=== PATIENT | female | born 2005 | race Caucasian/White ===

== ENCOUNTER 2024-11-19 12:11 | Inpatient (IN) | payer SELFPAY ==
[2024-11-19] VITALS (7 sets, daily range): BP systolic 109–148; BP diastolic 82–90; PULSE 122–137; RESP 12–20; TEMP 36.9–38; O2SAT 96–100; BMI 21.9
--- NOTE | ~2024-11-19 | US_ITS ---
US pelvic complete Ordering provider: Amena Hu PA-C History: . LLQ pain, r/o torsion . Comparison: None. Technique: Transabdominal endovaginal ultrasound of the pelvis (Doppler ultrasound interrogation tech niques used as needed for this exam.) FINDINGS: CERVIX: Normal. UTERUS: Measures 5.8x 4.6x 3.3 cm in length which is within normal limits and is anteverted. No myom etrial masses. ENDOMETRIUM: Normal in thickness measuring 8 mm. (Note: the premenopausal endometrium may measure up to 16 mm when in the secretory phase.) No endometrial masses, cysts or fluid. CUL DE SAC: Minimal free fluid. RIGHT OVARY: Normal in size measuring 2.8x 2.7x 2.4 cm. Normal echotexture. Doppler vascular flow pre sent. Polycystic ovaries. LEFT OVARY: Normal in size measuring 2.3x 2.5x 2.4 cm Normal echotexture. Doppler vascular flow prese nt. Polycystic pulmonary ADNEXA: Normal. No mass. IMPRESSION: Polycystic ovaries with minimal free fluid. No definite torsion seen. Clinical correlation advised. O therwise, normal pelvic ultrasound. Reviewed, dictated and finalized at location A. IMPRESSION: Polycystic ovaries with minimal free fluid. No definite torsion seen. Clinical correlation advised. Otherwise, normal pelvic ultrasound.
--- NOTE | ~2024-11-19 | XR_ITS ---
CHEST RADIOGRAPH CLINICAL HISTORY: sepsis . COMPARISON: None TECHNIQUE: Single portable view of the chest. FINDINGS The cardiomediastinal silhouette is unremarkable. The lungs are clear. IMPRESSION: No focal infiltrate or effusion. Reviewed, dictated and finalized at location A.
--- NOTE | ~2024-11-19 | CT_ITS ---
CLINICAL INDICATION: Left lower quadrant pain COMPARISON: . TECHNIQUE: Multiple contiguous axial images of the abdomen and pelvis were performed following the ad ministration of with 100 mL Omnipaque-350 intravenous contrast The dose-length product (DLP) was 207.37 mGy-cm. Automated exposure control and iterative reconstruction technique were employed. FINDINGS/OBSERVATIONS: Visualized lower thorax: The bilateral lung bases are clear. The heart is of normal size, without pericardial effusion. Liver: The liver demonstrates homogeneous enhancement and is not enlarged. Gallbladder and biliary system: The gallbladder is only minimally distended, and otherwise unremarkable. Pancreas: The pancreas enhances homogeneously without ductal dilatation. Spleen: The spleen enhances homogeneously and is not enlarged. Kidneys: The bilateral kidneys demonstrate a striated enhancement pattern for which pyelonephritis is suspecte d. No hydronephrosis or renal calculi. Adrenal glands: Unremarkable. Gastrointestinal tract: Fecal stasis within the colon. Appendix: The air-filled appendix is of normal caliber (axial series, images 89 through 112) Vasculature: Unremarkable. Lymph nodes: No pathologically enlarged or morphologically suspicious lymph nodes within the retroperitoneum or at the root of the mesentery. Pelvic structures: The bladder is distended, with thickened [place] and surrounding inflammatory change. The uterus is anteverted and anteflexed. Free fluid within the pelvis, consistent with earlier pelvic ultrasound. The bladder on pelvic ultrasound that demonstrated mural edema, consistent with patient's presentatio n. Body wall and musculoskeletal: No significant degenerative disease within the lower thoracic or lumbosacral spine. IMPRESSION: Findings suggestive of pyelonephritis, with significant inflammatory change surrounding the bladder Reviewed, dictated and finalized at location A. IMPRESSION: Findings suggestive of pyelonephritis, with significant inflammatory change rico rounding the bladder
--- NOTE | 2024-11-19 15:04 | ED_ITS ---
HPI - Female Genitourinary General Chief complaint: Urogenital-Female Stated complaint: ovarian L pain, has not started period yet Time Seen by Provider: 11/19/24 16:25 Focused HPI: 19-year-old female history of type 1 diabetes presents to the emergency department for left lower quadrant abdominal pain that started today, chills and body aches that started about 6 days ago. Patient states she was recently treated for pyelonephritis 3 weeks ago and was also in DKA and hospitalized at [facility]. She states she completed the entire course of antibiotics and was feeling better until her symptoms started again a few days ago. She went to her computer animator's office today and was sent to the ED due to concerns for possible ovarian torsion given her left lower quadrant abdominal pain. She also states that she had STD testing sent to the lab by her computer animator, however she denies concern for STDs. She denies any vaginal discharge, dysuria, hematuria, flank pain. No prior abdominal surgeries. She is also endorsing diarrhea for the past 2 weeks that is watery. Denies melena or hematochezia. States blood glucose has been controlled well at home. GENERAL: Well-appearing, well-nourished, and in no acute distress. HEAD: Normocephalic, atraumatic. CHEST: Clear to auscultation. ?No respiratory distress. ABD: Abdomen soft with tenderness in the left lower quadrant. No rebound or rigidity. No CVA tenderness. HEART: Regular rate and rhythm.? NEURO: ?Alert and oriented x3. Patient screened in triage and initial orders placed.? ?Additional care and disposition to be based upon?diagnostic testing and treatment. History of Present Illness HPI Narrative: Agree with the above triage note. Related Data Home Medications ?Medication ?Instructions ?Recorded ?Confirmed ?Last Taken ?Type insulin glargine 100 unit/mL 33 unit subcut QPM 11/19/24 11/19/24 Unknown History subcutaneous solution (Lantus U-100 Insulin) insulin lispro 100 unit/mL 1 sliding scale dose subcut 11/19/24 11/19/24 Unknown History subcutaneous pen (Humalog KwikPen USEASDIRECTD (U-100) Insulin) Allergies Allergy/AdvReac Type Severity Reaction Status Date / Time No Known Allergies Allergy Verified 11/19/24 17:01 Review of Systems 2 Review of Systems: All systems reviewed & are unremarkable except as noted in HPI and below PMFSH Past Medical History Medical History Type 1 diabetes Exam 2 Narrative: GENERAL: Well-appearing, well-nourished, and in no acute distress. HEAD: Normocephalic, atraumatic. EYES: PERRLA and EOMI. ENT: Nares clear, no rhinorrhea or epistaxis. Mucous membranes moist. NECK: Supple. CHEST: Clear to auscultation. No respiratory distress. HEART: Regular rate and rhythm. No murmur heard. Normal peripheral pulses. ABDOMEN: Soft, nontender, nondistended, normal active bowel sounds. No rebound, guarding or rigidity. EXTREMITIES: Normal range of motion. No edema. SKIN: Warm, dry, no rash. NEURO: No focal deficits. Alert and oriented x3 Course Vital Signs Vital signs: Vital Signs Temperature 98.5 F 11/19/24 12:31 Pulse Rate 137 H 11/19/24 12:31 Respiratory Rate 20 11/19/24 12:31 Blood Pressure 148/87 H 11/19/24 12:31 Pulse Oximetry 98 11/19/24 12:31 Oxygen Delivery Room Air 11/19/24 12:31 Temperature 99.9 F H 11/19/24 19:15 Pulse Rate 135 H 11/19/24 21:06 Respiratory Rate 17 11/19/24 21:06 Blood Pressure 130/86 11/19/24 21:06 Pulse Oximetry 98 11/19/24 21:06 Oxygen Delivery Room Air 11/19/24 16:55 MDM - Female Genitourinary MDM Narrative Medical decision making narrative: 19-year-old female with history of type 1 diabetes presents emergency department for left lower quadrant abdominal pain that started today and chills and body aches that started 3 days ago. Patient recently treated for pyelonephritis 3 weeks ago and reportedly completed the course of her antibiotics. States her symptoms were better until they came back again. Vitals are remarkable for tachycardia 137. Patient is presently well appearing and in no acute distress. In triage she did have some tenderness to the left lower quadrant but on re- evaluation is having no abdominal tenderness. EKG shows sinus tachycardia rate of 134 ppm, normal [place] interval, normal QRS duration, normal QTC, no ischemic changes. Her lab work is remarkable for leukocytosis of 16.2 and hemoglobin of 8.2. Patient is hyperglycemic at 281 with a bicarb of 21 and normal anion gap. Her alk-phos is elevated 243 with no prior for comparison. Remainder of LFTs are within normal limits. Lipase is normal. UA is indicative of urinary tract infection with greater than 100 white blood cells, 3+ leuk esterase, positive nitrites and 2+ bacteria. Urine culture is pending. Lactic is within normal limits. test is negative. Chest x-ray shows no acute cardiopulmonary findings. Pelvic ultrasound shows the polycystic ovaries with minimal free fluid, no definitive torsion seen. There is Doppler vascular flow present noted to both ovaries with otherwise normal pelvic ultrasound. On re-evaluation patient is not having any tenderness to her abdomen. CT abdomen pelvis shows findings suggestive of pyelonephritis with significant inflammatory changes surrounding the bladder. Patient does meet sepsis criteria and was given 2 L of fluids and started on broad spectrum antibiotics for sepsis. She also did spike a fever to 100.4 and was given Tylenol. Patient will be admitted for further evaluation and management. She is amenable to this. Discussed with hospitalist QUALITY MEASUREMENT SPECIALIST, Penny, who agrees to admission. I did discuss with Penny patient's coags are elevated, although she does have a normal platelet count. Agrees to order DIC panel. Lab Data 11/19/24 16:07 11/19/24 16:07 Labs: Lab Results 11/19/24 11/19/24 Range/Units 16:03 16:07 WBC 16.2 H (4.5-10.0) K/mm3 RBC 2.81 L (4.2-5.4) M/mm3 Hgb 8.2 L (12.0-15.0) g/dL Hct 25.6 L (37.0-47.0) % MCV 91.1 (80-100) fl MCH 29.2 (26-34) pg MCHC 32.0 (32-36) g/dl RDW 13.2 (11.5-14.5) % Plt Count 317 (150-375) k/mm3 MPV 10.2 (7.4-10.4) fl Immature Gran % (Auto) 0.6 H (0-0.5) % Neut % (Auto) 74.8 H (45.5-73.1) % Lymph % (Auto) 14.3 L (18.3-44.2) % [place] % (Auto) 9.7 H (2.6-8.5) % Eos % (Auto) 0.4 (0-4.4) % Baso % (Auto) 0.2 (0.2-1.2) % Lymph # (Auto) 2.31 (0.9-3.2) K/mm3 [place] # (Auto) 1.6 H (0.1-0.6) K/mm3 Eos # (Auto) 0.1 (0-0.3) K/mm3 Baso # (Auto) 0.0 (0.0-0.1) K/mm3 Abs Immat Gran (auto) 0.10 H (0.00-0.031) K/mm3 Absolute Neuts (auto) 12.1 H (1.3-6.7) K/mm3 Absolute Nucleated RBC 0.000 (0.0-0.012) K/mm3 Nucleated RBC % 0.0 (0.0-0.2) % PT 15.3 H (11.1-14.7) Seconds INR 1.2 APTT 37.2 H (22.3-36.8) Seconds Sodium 134 L (137-145) mmol/L Potassium 3.5 (3.4-5.0) mmol/L Chloride 101 (98-107) mmol/L Carbon Dioxide 21 L (22-30) mmol/L Anion Gap 12 (4-12) mmol/L BUN 9 (7-17) mg/dL Creatinine 0.94 (0.7-1.0) mg/dL Estim Creat Clear Calc 66 ml/min Estimated GFR > 60 (59 - ) Glucose 281 H (65-110) mg/dL Lactic Acid 1.0 (0.7-2.0) mmol/L Calcium 9.0 (8.4-10.2) mg/dL Total Bilirubin 0.4 (0.2-1.3) mg/dL AST 30 (14-36) U/L ALT 34 (6-35) U/L Alkaline Phosphatase 243 H (38-126) U/L Total Protein 7.4 (6.3-8.2) g/dL Albumin 3.4 L (3.5-5.1) g/dL Lipase 69 (23-300) U/L Procalcitonin Pending Urine Color Dark yellow (Yellow) Urine Appearance Turbid H (Clear) Urine pH 6.5 (5.0-9.0) Ur Specific [place] 1.011 (1.001-1.035) Urine Protein 2+ H (Negative) mg/dL Urine Glucose (UA) 1+ H (Negative) mg/dL Urine Ketones Trace H (Negative) mg/dL Ur Blood (Man) 1+ H (Negative) Urine Nitrate Positive H (Negative) Urine Bilirubin Negative (Negative) Urine Urobilinogen 1.0 (<2.0) mg/dL Leukocyte Esterase Rfl 3+ H (Negative) NIESHA/UL Urine RBC 0-2 (0-2) /hpf Urine WBC >100 H (0-3) /hpf Ur Squamous Epith Cells Few (Few) /hpf Urine Bacteria 2+ H /hpf Urine Casts 0-2 POC Urine HCG, Qual Negative (Negative) Discharge Plan Discharge Clinical Impression: Pyelonephritis Sepsis Qualifiers: Sepsis type: sepsis due to unspecified organism Sepsis acute organ dysfunction status: without acute organ dysfunction Qualified Code(s): A41.9 - Sepsis, unspecified organism Patient Disposition: Still a Patient Condition: Serious
--- NOTE | 2024-11-19 15:06 | ECG_ITS ---
Test Date: 2024-11-19 17:18:52 Measurements Intervals [place] Rate: 134 P: 57 WI: 154 QRS: 55 QRSD: 91 T: 45 QT: 282 QTc: 421 Interpretive Statements SINUS TACHYCARDIA INCOMPLETE RIGHT BUNDLE BRANCH BLOCK ABNORMAL ECG No previous ECG available for comparison Electronically Signed On 11-19-2024 19:23:31 CDT by Niles Garza D.O.
[2024-11-19 16:06] LABS: BEDSIDEPREGUCG Negative (Negative)
[2024-11-19 16:21] LABS: Basophils Percent Auto 0.2 % (0.2-1.2); Eosinophils Absolute Auto 0.1 K/mm3 (0-0.3); Eosinophils Percent Auto 0.4 % (0-4.4); Hematocrit 25.6 % (37.0-47.0); Hemoglobin 8.2 g/dL (12.0-15.0); Immature Granulocyte Percent A 0.6 % (0-0.5); Lymphocytes Absolute Auto 2.31 K/mm3 (0.9-3.2); Lymphocytes Percent Auto 14.3 % (18.3-44.2); Mean Corpuscular Hemoglobin 29.2 pg (26-34); Mean Corpuscular Volume 91.1 fl (80-100); Mean Platelet Volume 10.2 fl (7.4-10.4); Monocytes Absolute Auto 1.6 K/mm3 (0.1-0.6); Monocytes Percent Auto 9.7 % (2.6-8.5); Neutrophils Absolute Auto 12.1 K/mm3 (1.3-6.7); Neutrophils Percent Auto 74.8 % (45.5-73.1); Platelet Count Result 317 k/mm3 (150-375); Red Blood Count 2.81 M/mm3 (4.2-5.4); Red Cell Distribution Width 13.2 % (11.5-14.5); White Blood Count 16.2 K/mm3 (4.5-10.0)
[2024-11-19 16:27] LABS: Add Urine Microscopic? YES; Appearance Urine Turbid (Clear); Bacteria Urine 2+ /hpf; Bilirubin Urine Negative (Negative); Blood Urine 1+ (Negative); Color Urine Dark Yellow (Yellow); Glucose Urine UA 1+ mg/dL (Negative); Ketones Urine Trace mg/dL (Negative); Leukocyte Esterase Ur 3+ LEU/UL (Negative); Nitrate Urine Positive (Negative); Non Pathogenic Casts 0-2; Protein Urine 2+ mg/dL (Negative); RBC Urine 0-2 /hpf (0-2); Specific Grav Ur 1.011 (1.001-1.035); Squamous Epithelial Cell Urine Few /hpf (Few); WBC Urine >100 /hpf (0-3); pH Urine 6.5 (5.0-9.0)
[2024-11-19 16:32] LABS: Alanine Aminotransferase 34 U/L (6-35); Albumin Level 3.4 g/dL (3.5-5.1); Alkaline Phosphatase 243 U/L (38-126); Anion Gap 12 mmol/L (4-12); Aspartate Amino Transferase 30 U/L (14-36); Bilirubin,Total 0.4 mg/dL (0.2-1.3); Blood Urea Nitrogen 9 mg/dL (7-17); Carbon Dioxide 21 mmol/L (22-30); Chloride 101 mmol/L (98-107); Estimated CRCL calculation 66 ml/min; Estimated Glomerular Filt Rate > 60; Glucose 281 mg/dL (65-110); INR 1.2; Lipase 69 U/L (23-300); Potassium 3.5 mmol/L (3.4-5.0); Prothrombin Time 15.3 Seconds (11.1-14.7); Sodium 134 mmol/L (137-145); Total Protein 7.4 g/dL (6.3-8.2)
[2024-11-19 16:33] LABS: Partial Thromboplastin Time 37.2 Seconds (22.3-36.8)
[2024-11-19] MEDS: SODIUM CHLORIDE 0.9% IV 1,000 ML 999 ML IV CONT ×2 (17:16→18:56)
[2024-11-19] MEDS: ACETAMINOPHEN 500 MG TABLET 1000 MG PO (17:17)
--- NOTE | 2024-11-19 18:21 | PC.NURSE ---
Multiple staff members, including this RN, unable to obtain 2nd set of blood cultures. MALVIN Gilbert to bedside to attempt.
[2024-11-19] MEDS: PIPERACILLN/TAZ 3.375GM/NS50ML 3.375 GM/50 ML BAG IVPB (18:54)
[2024-11-19 19:03] LABS: Glucose Point of Care 240 mg/dl (65-105)
--- NOTE | 2024-11-19 19:17 | P.HP_ITS ---
H&P: HPI History of Present Illness Date/Time: 11/19/24 19:17 Chief Complaint: Abdominal Pain, UTI, Chills Narrative: 19 y/o F with PMH of DM1 presents here with chills, body aches, abdominal pain. The patient presents here from home on 11/19 for further evaluation of chills, body aches, abdominal pain, and persistent UTI. She reports she was diagnosed with a UTI approximately 3 weeks ago. She was prescribed Bactrim 800/160 b.i.d. times 10 days on 10/28/2024. She reports despite completing course she felt XX. Patient developed chills, body aches, and left lower quadrant abdominal pain early this morning which prompted her to seek evaluation in the ER. She describes the abdominal pain as XX, radiating/nonradiating, and constant/intermittent. Abdominal pain has since resolved? The patient also endorses XX. Denies XX. Initial VS at presentation: 98.5? F, HR 137, R 20, 148/87, and 98% on RA. ED workup showed: WBC 16.2, hemoglobin 8.2, INR 1.2, sodium 134, gap closed, creatinine 0.94 and GFR >60, glucose 281, and UA consistent with UTI. Pelvic ultrasound showed polycystic ovaries with minimal free fluid, no definite torsion noted. CXR showed no focal infiltrate or effusion. CT of the abdomen/pelvis showed finding suggestive of pyelonephritis with significant inflammatory changes surrounding the bladder. Review of Systems Review of Systems: All systems reviewed & are unremarkable except as noted in HPI and below PMFSH Past Medical History Medical History Type 1 diabetes Meds Home Medications and Allergies Home Medications ?Medication ?Instructions ?Recorded ?Confirmed ?Type insulin glargine 100 unit/mL 33 unit subcut QPM 11/19/24 11/19/24 History subcutaneous solution (Lantus U-100 Insulin) insulin lispro 100 unit/mL 1 sliding scale dose subcut 11/19/24 11/19/24 History subcutaneous pen (Humalog KwikPen USEASDIRECTD (U-100) Insulin) Allergies Allergy/AdvReac Type Severity Reaction Status Date / Time No Known Allergies Allergy Verified 11/19/24 17:01 Vital Signs Vital Signs - 24 hr 11/19/24 12:31 11/19/24 14:33 11/19/24 15:01 Temperature 98.5 F 99 F 98.7 F Pulse Rate 137 H 122 H Respiratory Rate 20 18 Blood Pressure 148/87 H 109/86 Pulse Oximetry 98 100 Oxygen Delivery Room Air 11/19/24 16:55 11/19/24 16:55 Temperature 100.4 F H Pulse Rate 135 H 132 H Respiratory Rate 16 16 Blood Pressure 118/85 118/85 Pulse Oximetry 96 100 Oxygen Delivery Room Air Exam Const: General: comfortable and no acute distress Other: , female, young adult, nontoxic appearance HENMT: Face/Nose/Sinus: Normal nares present Mouth: Yes moist mucous membranes Eyes: General: appearance normal, both eyes and all related structures Sclera: sclerae normal Pupils: Equal, round and reactive pupils present EOM: EOMs intact bilaterally Resp: Effort & Inspection: normal respiratory effort Auscultation: clear to auscultation bilaterally Cardio: Rate: regular rate Rhythm: regular rhythm Other: S1-S2 present without murmur, rub, ectopy GI: Other: Abdomen soft, nondistended, nontender. Normoactive bowel sounds in all quadrants. : Other: No CVA tenderness Skin: General skin exam: normal color and no rashes or lesions noted Wounds: no wounds Neuro: General: gait normal Speech: normal speech Motor exam (neuro): 5/5 motor strength present throughout Sensory Exam: normal sensation Other: A&O x4 Extrem: General: normal to inspection Psych: Mental Status: mental status grossly normal Affect: normal affect Other: Good insight and judgment, very pleasant H&P: Results Labs Labs: Short CBC 11/19/24 Range/Units 16:07 WBC 16.2 H (4.5-10.0) K/mm3 Hgb 8.2 L (12.0-15.0) g/dL Hct 25.6 L (37.0-47.0) % Plt Count 317 (150-375) k/mm3 BMP 11/19/24 16:07 Sodium 134 L Potassium 3.5 Chloride 101 Carbon Dioxide 21 L BUN 9 Creatinine 0.94 Glucose 281 H Calcium 9.0 Liver Function 11/19/24 Range/Units 16:07 Total Bilirubin 0.4 (0.2-1.3) mg/dL AST 30 (14-36) U/L ALT 34 (6-35) U/L Alkaline Phosphatase 243 H (38-126) U/L Albumin 3.4 L (3.5-5.1) g/dL Urine 11/19/ Range/Units 16:07 Urine Color Dark yellow (Yellow) Urine Appearance Turbid H (Clear) Urine pH 6.5 (5.0-9.0) Ur Specific [place] 1.011 (1.001-1.035) Urine Protein 2+ H (Negative) mg/dL Urine Glucose (UA) 1+ H (Negative) mg/dL Assessment and Plan Assessment and plan (1) Sepsis: Qualifiers: Sepsis acute organ dysfunction status: without acute organ dysfunction Sepsis type: sepsis due to unspecified organism Qualified Code(s): A41.9 - Sepsis, unspecified organism Code(s): A41.9 - Sepsis, unspecified organism Status: Acute Assessment and Plan: - meets SIRS criteria: Tachycardia, white count of 16.2. + fever - lactic acid: 1.0 - check procalcitonin - 30 mL/kg = 1.6L, given 2L bolus -> 125 mL/hr monitor I&Os - suspected source: Pyelonephritis - started on vancomycin and Zosyn on 11/19 - blood cultures drawn on 11/19, follow - UA consistent with UTI and CT findings consistent with pyelonephritis - CXR: No focal infiltrate or effusion - admit with tele given significant tachycardia despite IV fluids. Monitor closely. (2) Pyelonephritis: Code(s): N12 - Tubulo-interstitial nephritis, not specified as acute or chronic Status: Acute Assessment and Plan: - CT abdomen/pelvis: Findings suggestive of pyelonephritis, with significant inflammatory change surrounding the bladder - UA: Turbid, 2+ protein, 1+ glucose, trace ketones, 1+ blood, positive nitrates, 3+ leuks, greater than 100 WBC, few epithelial cells, 2+ bacteria - UC pending - previous micro reviewed - started on Zosyn and vancomycin on 11/19 due to patient's significant vitals and previous p.o. antibiotic course (3) Type 1 diabetes: Qualifiers: Diabetes mellitus complication status: with hyperglycemia Qualified Code(s): E10.65 - Type 1 diabetes mellitus with hyperglycemia Code(s): E10.9 - Type 1 diabetes mellitus without complications Status: Acute Assessment and Plan: - hypoglycemia protocol - POC blood glucose ACHS - home medication: Continue Lantus 33 units HS, continue home sliding scale -> Patient's corrective dose for insulin (Lispro) 1 unit for ever 50 points in glucose above 150 +1 unit per 10 carbs for carb correction, patient calculates. Communication to pharmacy to allow patient to calculate dosing. Nursing staff alerted to plan. Will need 1 time orders per meal for correct sliding scale. Patient requesting this as she is very fearful of going into DKA. - correct regimen ordered - low dose TIDWM and HS, based off BMI - A1C ordered Plan Diet: Diabetes GI Prophylaxis: Not currently indicated DVT Prophylaxis: SCDs IV fluids: 2L bolus -> 125 mL/hr Lines/Tubes: Peripheral IV Code Status: Full code Quality VTE Prophylaxis VTE prophylaxis: mechanical ordered Hospitalist [facility] Advance Care Plan I have confirmed that the patient's Advanced Care Plan is present, code status is documented, or surrogate decision maker is listed in patient medical record.: Yes Medication Reconciliation I have utilized all available resources to obtain, update and review the patients current medications (includes all prescriptions, OTC, herbals, cannabis, and nutritional supplements).: Yes
--- NOTE | 2024-11-19 19:23 | PC.NURSE ---
Pt. refused labs for DIC panel. Lab states they cannot add on labs.
[2024-11-19] MEDS: VANCOMYCIN 1,000 MG/NS 250 ML 1,000 MG/250 ML BAG 250 MG IVPB (19:44)
[2024-11-19 20:41] LABS: Glucose Point of Care 294 mg/dl (65-105)
[2024-11-19] MEDS: KETOROLAC 30 MG/ML VIAL (*BKC) IV PUSH (20:59)
[2024-11-19] MEDS: INSULIN GLARGINE (*BKC) 100 UNITS/ML 33 UNITS SUB-Q (21:04)
--- NOTE | 2024-11-19 21:10 | PC.NURSE ---
This RN went to administer pt. insulin. Pt. states her order for aspart sliding scale is wrong. Order states she should receive 1 unit but per her sliding scale she should be getting 3 units. Her formula: (blood sugar-150)/50. Pt. does not want aspart at this time. Pt. has bed upstairs and information will be relayed to RN.
--- NOTE | 2024-11-19 21:19 | PC.NURSE ---
FLOR Cabrera for pt. room on floor 329 is aware that pt. did not want aspart d/t different sliding scale dose than her home dose. RN states that she will notify provide of pt. request.
[2024-11-19 21:55] LABS: Procalcitonin. 1.5 ng/mL
[2024-11-19 22:17] LABS: Glucose Point of Care 318 mg/dl (65-105)
--- NOTE | 2024-11-19 23:49 | ADMGEN ---
This patient, Lupe Ledesma, was admitted to [facility] Surg Room 329-01. Patient/family oriented to hospital policies and general routines including ID bracelet, bed and alarms, visiting hours, pain management, procedures, bathroom and other care routines, personal items, smoking policy, room service/diet, and visiting hours. Information on how to activate the Rapid Response Team has been discussed. Patient/Family are encouraged to report perceived risks to care and to ask questions if they do not understand what they are told or what they should do.
[2024-11-20] MEDS: SODIUM CHLORIDE 0.9% IV 1,000 ML 125 ML IV CONT ×2 (00:59→10:29)
[2024-11-20] MEDS: PIPERACILLN/TAZ 3.375GM/NS50ML 3.375 GM/50 ML BAG IVPB ×5 (01:00→23:15)
[2024-11-20 01:35] LABS: Glucose Point of Care 337 mg/dl (65-105)
[2024-11-20] MEDS: INSULIN ASPART (*BKC) 100 UNITS/ML SUB-Q ×4 (02:37→17:35)
[2024-11-20 05:41] LABS: Hemoglobin 7.9 g/dL (12.0-15.0); Mean Corpuscular HGB Conc 31.6 g/dl (32-36); Mean Corpuscular Hemoglobin 29.3 pg (26-34); Mean Corpuscular Volume 92.6 fl (80-100); Mean Platelet Volume 10.4 fl (7.4-10.4); Platelet Count Result 292 k/mm3 (150-375); Red Cell Distribution Width 13.3 % (11.5-14.5); White Blood Count 13.5 K/mm3 (4.5-10.0)
[2024-11-20 05:43] LABS: Basophils Percent Auto 0.2 % (0.2-1.2); Eosinophils Absolute Auto 0.1 K/mm3 (0-0.3); Eosinophils Percent Auto 0.5 % (0-4.4); Hematocrit 25.5 % (37.0-47.0); Hemoglobin 7.9 g/dL (12.0-15.0); Immature Granulocyte Absolute 0.11 K/mm3 (0.00-0.031); Immature Granulocyte Percent A 0.8 % (0-0.5); Lymphocytes Absolute Auto 1.38 K/mm3 (0.9-3.2); Lymphocytes Percent Auto 10.5 % (18.3-44.2); Mean Corpuscular Hemoglobin 28.9 pg (26-34); Mean Corpuscular Volume 93.4 fl (80-100); Mean Platelet Volume 10.4 fl (7.4-10.4); Monocytes Absolute Auto 1.1 K/mm3 (0.1-0.6); Monocytes Percent Auto 8.3 % (2.6-8.5); Neutrophils Absolute Auto 10.4 K/mm3 (1.3-6.7); Neutrophils Percent Auto 79.7 % (45.5-73.1); Platelet Count Result 290 k/mm3 (150-375); Red Blood Count 2.73 M/mm3 (4.2-5.4); Red Cell Distribution Width 13.3 % (11.5-14.5); White Blood Count 13.1 K/mm3 (4.5-10.0)
[2024-11-20 05:53] LABS: INR 1.2; Prothrombin Time 14.9 Seconds (11.1-14.7)
[2024-11-20 05:54] LABS: Fibrinogen 611 mg/dl (215-510); Partial Thromboplastin Time 39.9 Seconds (22.3-36.8)
[2024-11-20 05:59] LABS: D Dimer 2.52 ug/mL (<0.48)
[2024-11-20 06:00] VITALS: BP 124/84; PULSE 136; RESP 20; TEMP 39.4; O2SAT 96
[2024-11-20 06:11] LABS: Alanine Aminotransferase 30 U/L (6-35); Alkaline Phosphatase 234 U/L (38-126); Anion Gap 10 mmol/L (4-12); Aspartate Amino Transferase 28 U/L (14-36); Bilirubin,Total 0.4 mg/dL (0.2-1.3); Blood Urea Nitrogen 9 mg/dL (7-17); Calcium 8.6 mg/dL (8.4-10.2); Carbon Dioxide 21 mmol/L (22-30); Chloride 106 mmol/L (98-107); Estimated CRCL calculation 67 ml/min; Estimated Glomerular Filt Rate > 60; Glucose 212 mg/dL (65-110); Potassium 3.6 mmol/L (3.4-5.0); Sodium 137 mmol/L (137-145); Total Protein 6.6 g/dL (6.3-8.2)
[2024-11-20] MEDS: ACETAMINOPHEN 500 MG TABLET 1000 MG PO ×3 (06:40→18:11)
[2024-11-20 07:59] LABS: Glucose Point of Care 136 mg/dl (65-105)
[2024-11-20 08:41] VITALS: TEMP 36
[2024-11-20 09:21] LABS: Magnesium 1.8 mg/dL (1.6-2.3)
[2024-11-20 11:27] LABS: Glucose Point of Care 72 mg/dl (65-105)
[2024-11-20 12:28] VITALS: TEMP 37.7
--- NOTE | 2024-11-20 12:31 | PM.IMPN ---
Progress Note: A&P Assessment and Plan (1) Sepsis: Qualifiers: Sepsis acute organ dysfunction status: without acute organ dysfunction Sepsis type: sepsis due to unspecified organism Qualified Code(s): A41.9 - Sepsis, unspecified organism Code(s): A41.9 - Sepsis, unspecified organism Status: Acute (2) Pyelonephritis: Code(s): N12 - Tubulo-interstitial nephritis, not specified as acute or chronic Status: Acute (3) Type 1 diabetes: Qualifiers: Diabetes mellitus complication status: with hyperglycemia Qualified Code(s): E10.65 - Type 1 diabetes mellitus with hyperglycemia Code(s): E10.9 - Type 1 diabetes mellitus without complications Status: Acute Plan sepsis UTI/Pyelonephritis Tachycardia fever and WBC Follow culture results Continue Zosyn Continue to monitor Pyelonephritis plan as above DM1 SSi and AccuCheck Lantus and lispro anemia likely chronic follow with PCP as outpatient Diet: Diabetes GI Prophylaxis: Not currently indicated DVT Prophylaxis: SCDs IV fluids: 2L bolus -> 125 mL/hr Lines/Tubes: Peripheral IV Code Status: Full code Subjective Date/time seen: 11/20/24 12:31 Interval history: 19 y/o F with PMH of DM1 presents here with chills, body aches, abdominal pain. The patient presents here from home on 11/19 for further evaluation of chills, body aches, abdominal pain, and persistent UTI. She reports she was diagnosed with a UTI approximately 3 weeks ago. She was prescribed Bactrim 800/160 b.i.d. times 10 days on 10/28/2024. She reports despite completing course she felt XX. Patient developed chills, body aches, and left lower quadrant abdominal pain early this morning which prompted her to seek evaluation in the ER. She describes the abdominal pain as XX, radiating/nonradiating, and constant/intermittent. Abdominal pain has since resolved? The patient also endorses XX. Denies XX. Initial VS at presentation: 98.5? F, HR 137, R 20, 148/87, and 98% on RA. ED workup showed: WBC 16.2, hemoglobin 8.2, INR 1.2, sodium 134, gap closed, creatinine 0.94 and GFR >60, glucose 281, and UA consistent with UTI. Pelvic ultrasound showed polycystic ovaries with minimal free fluid, no definite torsion noted. CXR showed no focal infiltrate or effusion. CT of the abdomen/pelvis showed finding suggestive of pyelonephritis with significant inflammatory changes surrounding the bladder. 11/20/24 Patient was seen and examined at bedside. she is feeling better. her abd pain is better. denies any chest pain SOb, N/V. Blood culture positive. continue Zosyn. will Dc Vancomycin Review of Systems Review of Systems: All systems reviewed & are unremarkable except as noted in HPI and below Exam Narrative: correction dose: BS number -150 /50 is correction dose. +carb counting Const: General: comfortable and no acute distress Other: , female, young adult, nontoxic appearance HENMT: Face/Nose/Sinus: Normal nares present Mouth: Yes moist mucous membranes Eyes: General: appearance normal, both eyes and all related structures Sclera: sclerae normal Pupils: Equal, round and reactive pupils present EOM: EOMs intact bilaterally Resp: Effort & Inspection: normal respiratory effort Auscultation: clear to auscultation bilaterally Cardio: Rate: regular rate Rhythm: regular rhythm Other: S1-S2 present without murmur, rub, ectopy GI: Other: Abdomen soft, nondistended, nontender. Normoactive bowel sounds in all quadrants. : Other: No CVA tenderness Skin: General skin exam: normal color and no rashes or lesions noted Wounds: no wounds Neuro: General: gait normal Cranial nerves: Yes Equal, round and reactive pupils present Speech: normal speech Motor exam (neuro): 5/5 motor strength present throughout Sensory Exam: normal sensation Other: A&O x4 Extrem: General: normal to inspection Psych: Mental Status: mental status grossly normal Affect: normal affect Other: Good insight and judgment, very pleasant Objective Data Vital Signs Vital Signs: Vital Signs - 24 hr 11/19/24 14:33 11/19/24 15:01 11/19/24 16:55 Temperature 99 F 98.7 F Pulse Rate 122 H 135 H Respiratory Rate 18 16 Blood Pressure 109/86 118/85 Pulse Oximetry 100 96 Oxygen Delivery Room Air 11/19/24 16:55 11/19/24 19:15 11/19/24 21:06 Temperature 100.4 F H 99.9 F H Pulse Rate 132 H 125 H 135 H Respiratory Rate 16 18 17 Blood Pressure 118/85 128/82 130/86 Pulse Oximetry 100 100 98 Oxygen Delivery 11/19/24 23:05 11/19/24 23:11 11/20/24 06:00 Temperature 98.9 F 102.9 F H Pulse Rate 126 H 136 H Respiratory Rate 12 20 Blood Pressure 129/90 124/84 Pulse Oximetry 99 96 Oxygen Delivery Room Air 11/20/24 08:00 11/20/24 08:41 11/20/24 12:28 Temperature 96.8 F L 99.9 F H Pulse Rate Respiratory Rate Blood Pressure Pulse Oximetry Oxygen Delivery Room Air Intake/Output Intake/Output: Intake & Output 11/17/24 11/18/24 11/19/24 11/20/24 23:59 23:59 23:59 23:59 Intake Total 2300 1490 Balance 2300 1490 Meds/Results Medications: Active Medications Generic Name Dose Route Start Last Admin Trade Name Freq PRN Reason Stop Dose Admin Acetaminophen 1,000 mg 11/19/24 19:51 11/20/24 12:28 Acetaminophen 500 Mg Tablet PO 1,000 mg Q6H PRN Administration Mild Pain (1-3) or Fever Dextrose 12.5 gm 11/19/24 19:52 Dextrose 50% 25 Gm/50 Ml Syringe IV PUSH PRN PRN Hypoglycemia Protocol Glucagon 1 mg 11/19/24 19:52 Glucagon For Inj 1 Mg Vial IM PRN PRN Hypoglycemia Protocol Glucose 15 gm 11/19/24 19:52 Glucose Oral Gel 15 Gm Of Glucse In 37.5 Gm Tube PO PRN PRN Hypoglycemia Protocol Piperacillin/Tazobactam/Dextrose 3.375 gm in 50 mls @ 100 mls/hr 11/20/24 00:00 11/20/24 12:30 Zosyn 3.375 Gm/Ns 50 Ml IVPB 100 mls/hr Q6H BILLY Administration Sodium Chloride 1,000 mls @ 125 mls/hr 11/19/24 18:55 11/20/24 10:29 Normal Saline Iv IV CONT 125 mls/hr .Q8H BILLY Administration Dextrose 1,000 mls @ 100 mls/hr 11/19/24 19:52 Dextrose 5% 1,000 Ml IVPB PRN PRN Hypoglycemia Protocol Insulin Aspart 0 units 11/20/24 08:00 11/20/24 08:35 Insulin Aspart (*Bkc) 100 Units/Ml SUB-Q 4 units TIDWM BILLY Administration Insulin Aspart 0 units 11/20/24 08:00 11/20/24 12:06 Insulin Aspart (*Bkc) 100 Units/Ml SUB-Q Not Given TIDWM BILLY Insulin Aspart 0 units 11/20/24 00:45 11/20/24 02:39 Insulin Aspart (*Bkc) 100 Units/Ml SUB-Q 4 units QHS BILLY Administration Insulin Glargine 33 units 11/19/24 18:00 11/19/24 21:04 Insulin Glargine (*Bkc) 100 Units/Ml SUB-Q 33 units QPM BILLY Administration Morphine Sulfate 2 mg 11/19/24 19:51 Morphine Sulfate (*Crx) 2 Mg/Ml Inj IV PUSH Q4H PRN Pain Rated 7-10 Oxycodone HCl 2.5 mg 11/19/24 19:51 Oxycodone Hcl (*Crx) 2.5 Mg Tab Ir PO Q4H PRN Pain Rated 4-6 Radiology Results: ITS Impressions Pelvis Ultrasound 11/19/24 16:21 IMPRESSION: Polycystic ovaries with minimal free fluid. No definite torsion seen. Clinical correlation advised. Otherwise, normal pelvic ultrasound. Chest X-Ray 11/19/24 17:48 IMPRESSION: No focal infiltrate or effusion. Abdomen/Pelvis CT 11/19/24 18:09 IMPRESSION: Findings suggestive of pyelonephritis, with significant inflammatory change surrounding the bladder Labs Labs: Laboratory Results - last 24 hr 11/19/24 11/19/24 11/19/24 16:03 16:07 18:57 WBC 16.2 H RBC 2.81 L Hgb 8.2 L Hct 25.6 L MCV 91.1 MCH 29.2 MCHC 32.0 RDW 13.2 Plt Count 317 MPV 10.2 Immature Gran % (Auto) 0.6 H Neut % (Auto) 74.8 H Lymph % (Auto) 14.3 L [place] % (Auto) 9.7 H Eos % (Auto) 0.4 Baso % (Auto) 0.2 Lymph # (Auto) 2.31 [place] # (Auto) 1.6 H Eos # (Auto) 0.1 Baso # (Auto) 0.0 Abs Immat Gran (auto) 0.10 H Absolute Neuts (auto) 12.1 H Absolute Nucleated RBC 0.000 Nucleated RBC % 0.0 PT 15.3 H INR 1.2 APTT 37.2 H Fibrinogen D-Dimer Sodium 134 L Potassium 3.5 Chloride 101 Carbon Dioxide 21 L Anion Gap 12 BUN 9 Creatinine 0.94 Estim Creat Clear Calc 66 Estimated GFR > 60 Glucose 281 H POC Capillary Glucose 240 H Lactic Acid 1.0 Calcium 9.0 Magnesium Total Bilirubin 0.4 AST 30 ALT 34 Alkaline Phosphatase 243 H Total Protein 7.4 Albumin 3.4 L Lipase 69 Procalcitonin 1.5 Urine Color Dark yellow Urine Appearance Turbid H Urine pH 6.5 Ur Specific [place] 1.011 Urine Protein 2+ H Urine Glucose (UA) 1+ H Urine Ketones Trace H Ur Blood (Man) 1+ H Urine Nitrate Positive H Urine Bilirubin Negative Urine Urobilinogen 1.0 Leukocyte Esterase Rfl 3+ H Urine RBC 0-2 Urine WBC >100 H Ur Squamous Epith Cells Few Urine Bacteria 2+ H Urine Casts 0-2 POC Urine HCG, Qual Negative 11/19/24 11/19/24 11/20/24 20:39 21:56 00:43 WBC RBC Hgb Hct MCV MCH MCHC RDW Plt Count MPV Immature Gran % (Auto) Neut % (Auto) Lymph % (Auto) [place] % (Auto) Eos % (Auto) Baso % (Auto) Lymph # (Auto) [place] # (Auto) Eos # (Auto) Baso # (Auto) Abs Immat Gran (auto) Absolute Neuts (auto) Absolute Nucleated RBC Nucleated RBC % PT INR APTT Fibrinogen D-Dimer Sodium Potassium Chloride Carbon Dioxide Anion Gap BUN Creatinine Estim Creat Clear Calc Estimated GFR Glucose POC Capillary Glucose 294 H 318 H 337 H Lactic Acid Calcium Magnesium Total Bilirubin AST ALT Alkaline Phosphatase Total Protein Albumin Lipase Procalcitonin Urine Color Urine Appearance Urine pH Ur Specific [place] Urine Protein Urine Glucose (UA) Urine Ketones Ur Blood (Man) Urine Nitrate Urine Bilirubin Urine Urobilinogen Leukocyte Esterase Rfl Urine RBC Urine WBC Ur Squamous Epith Cells Urine Bacteria Urine Casts POC Urine HCG, Qual 11/20/24 11/20/24 11/20/24 05:15 05:15 05:15 WBC 13.5 H 13.1 H RBC 2.70 L 2.73 L Hgb 7.9 L Hct MCV MCH MCHC RDW Plt Count MPV Immature Gran % (Auto) Neut % (Auto) Lymph % (Auto) [place] % (Auto) Eos % (Auto) Baso % (Auto) Lymph # (Auto) [place] # (Auto) Eos # (Auto) Baso # (Auto) Abs Immat Gran (auto) Absolute Neuts (auto) Absolute Nucleated RBC Nucleated RBC % PT INR APTT Fibrinogen D-Dimer Sodium Potassium Chloride Carbon Dioxide Anion Gap BUN Creatinine Estim Creat Clear Calc Estimated GFR Glucose POC Capillary Glucose Lactic Acid Calcium Magnesium Total Bilirubin AST ALT Alkaline Phosphatase Total Protein Albumin Lipase Procalcitonin Urine Color Urine Appearance Urine pH Ur Specific [place] Urine Protein Urine Glucose (UA) Urine Ketones Ur Blood (Man) Urine Nitrate Urine Bilirubin Urine Urobilinogen Leukocyte Esterase Rfl Urine RBC Urine WBC Ur Squamous Epith Cells Urine Bacteria Urine Casts POC Urine HCG, Qual 11/20/24 11/20/24 11/20/24 05:15 05:15 05:15 WBC RBC Hgb 7.9 L Hct 25.0 L 25.5 L MCV 92.6 93.4 MCH 29.3 MCHC RDW Plt Count MPV Immature Gran % (Auto) Neut % (Auto) Lymph % (Auto) [place] % (Auto) Eos % (Auto) Baso % (Auto) Lymph # (Auto) [place] # (Auto) Eos # (Auto) Baso # (Auto) Abs Immat Gran (auto) Absolute Neuts (auto) Absolute Nucleated RBC Nucleated RBC % PT INR APTT Fibrinogen D-Dimer Sodium Potassium Chloride Carbon Dioxide Anion Gap BUN Creatinine Estim Creat Clear Calc Estimated GFR Glucose POC Capillary Glucose Lactic Acid Calcium Magnesium Total Bilirubin AST ALT Alkaline Phosphatase Total Protein Albumin Lipase Procalcitonin Urine Color Urine Appearance Urine pH Ur Specific [place] Urine Protein Urine Glucose (UA) Urine Ketones Ur Blood (Man) Urine Nitrate Urine Bilirubin Urine Urobilinogen Leukocyte Esterase Rfl Urine RBC Urine WBC Ur Squamous Epith Cells Urine Bacteria Urine Casts POC Urine HCG, Qual 11/20/24 11/20/24 11/20/24 05:15 05:15 05:15 WBC RBC Hgb Hct MCV MCH 28.9 MCHC 31.6 L 31.0 L RDW 13.3 13.3 Plt Count 292 MPV Immature Gran % (Auto) Neut % (Auto) Lymph % (Auto) [place] % (Auto) Eos % (Auto) Baso % (Auto) Lymph # (Auto) [place] # (Auto) Eos # (Auto) Baso # (Auto) Abs Immat Gran (auto) Absolute Neuts (auto) Absolute Nucleated RBC Nucleated RBC % PT INR APTT Fibrinogen D-Dimer Sodium Potassium Chloride Carbon Dioxide Anion Gap BUN Creatinine Estim Creat Clear Calc Estimated GFR Glucose POC Capillary Glucose Lactic Acid Calcium Magnesium Total Bilirubin AST ALT Alkaline Phosphatase Total Protein Albumin Lipase Procalcitonin Urine Color Urine Appearance Urine pH Ur Specific [place] Urine Protein Urine Glucose (UA) Urine Ketones Ur Blood (Man) Urine Nitrate Urine Bilirubin Urine Urobilinogen Leukocyte Esterase Rfl Urine RBC Urine WBC Ur Squamous Epith Cells Urine Bacteria Urine Casts POC Urine HCG, Qual 11/20/24 11/20/24 11/20/24 05:15 05:15 07:46 WBC RBC Hgb Hct MCV MCH MCHC RDW Plt Count 290 MPV 10.4 10.4 Immature Gran % (Auto) 0.8 H Neut % (Auto) 79.7 H Lymph % (Auto) 10.5 L [place] % (Auto) 8.3 Eos % (Auto) 0.5 Baso % (Auto) 0.2 Lymph # (Auto) 1.38 [place] # (Auto) 1.1 H Eos # (Auto) 0.1 Baso # (Auto) 0.0 Abs Immat Gran (auto) 0.11 H Absolute Neuts (auto) 10.4 H Absolute Nucleated RBC 0.000 Nucleated RBC % 0.0 PT 14.9 H INR 1.2 APTT 39.9 H Fibrinogen 611 H D-Dimer 2.52 H Sodium 137 Potassium 3.6 Chloride 106 Carbon Dioxide 21 L Anion Gap 10 BUN 9 Creatinine 0.93 Estim Creat Clear Calc 67 Estimated GFR > 60 Glucose 212 H POC Capillary Glucose 136 H Lactic Acid Calcium 8.6 Magnesium 1.8 Total Bilirubin 0.4 AST 28 ALT 30 Alkaline Phosphatase 234 H Total Protein 6.6 Albumin 3.0 L Lipase Procalcitonin Urine Color Urine Appearance Urine pH Ur Specific [place] Urine Protein Urine Glucose (UA) Urine Ketones Ur Blood (Man) Urine Nitrate Urine Bilirubin Urine Urobilinogen Leukocyte Esterase Rfl Urine RBC Urine WBC Ur Squamous Epith Cells Urine Bacteria Urine Casts POC Urine HCG, Qual 11/20/24 11:17 WBC RBC Hgb Hct MCV MCH MCHC RDW Plt Count MPV Immature Gran % (Auto) Neut % (Auto) Lymph % (Auto) [place] % (Auto) Eos % (Auto) Baso % (Auto) Lymph # (Auto) [place] # (Auto) Eos # (Auto) Baso # (Auto) Abs Immat Gran (auto) Absolute Neuts (auto) Absolute Nucleated RBC Nucleated RBC % PT INR APTT Fibrinogen D-Dimer Sodium Potassium Chloride Carbon Dioxide Anion Gap BUN Creatinine Estim Creat Clear Calc Estimated GFR Glucose POC Capillary Glucose 72 Lactic Acid Calcium Magnesium Total Bilirubin AST ALT Alkaline Phosphatase Total Protein Albumin Lipase Procalcitonin Urine Color Urine Appearance Urine pH Ur Specific [place] Urine Protein Urine Glucose (UA) Urine Ketones Ur Blood (Man) Urine Nitrate Urine Bilirubin Urine Urobilinogen Leukocyte Esterase Rfl Urine RBC Urine WBC Ur Squamous Epith Cells Urine Bacteria Urine Casts POC Urine HCG, Qual Quality VTE Prophylaxis VTE prophylaxis: mechanical ordered
[2024-11-20 13:54] VITALS: BP 133/77; PULSE 132; RESP 18; TEMP 37.4; O2SAT 98
[2024-11-20] MEDS: ONDANSETRON INJ 4 MG/2 ML VIAL IV PUSH (16:29)
[2024-11-20 17:06] LABS: Glucose Point of Care 83 mg/dl (65-105)
[2024-11-20 20:32] LABS: Glucose Point of Care 145 mg/dl (65-105)
[2024-11-20] MEDS: INSULIN GLARGINE (*BKC) 100 UNITS/ML 33 UNITS SUB-Q (20:43)
[2024-11-20 21:25] VITALS: BP 130/89; PULSE 110; RESP 14; TEMP 36.9; O2SAT 100
[2024-11-21] MEDS: PIPERACILLN/TAZ 3.375GM/NS50ML 3.375 GM/50 ML BAG IVPB ×2 (05:08→11:28)
[2024-11-21 05:21] VITALS: BP 124/77; PULSE 124; RESP 14; TEMP 37.3; O2SAT 98
[2024-11-21] MEDS: ACETAMINOPHEN 500 MG TABLET 1000 MG PO (06:12)
[2024-11-21 07:02] LABS: Hematocrit 23.2 % (37.0-47.0); Hemoglobin 7.3 g/dL (12.0-15.0); Mean Corpuscular HGB Conc 31.5 g/dl (32-36); Mean Corpuscular Hemoglobin 29.2 pg (26-34); Mean Corpuscular Volume 92.8 fl (80-100); Mean Platelet Volume 10.4 fl (7.4-10.4); Platelet Count Result 311 k/mm3 (150-375); Red Cell Distribution Width 13.4 % (11.5-14.5); White Blood Count 11.4 K/mm3 (4.5-10.0)
[2024-11-21 07:22] LABS: Anion Gap 9 mmol/L (4-12); Blood Urea Nitrogen 7 mg/dL (7-17); Calcium 8.5 mg/dL (8.4-10.2); Carbon Dioxide 21 mmol/L (22-30); Chloride 104 mmol/L (98-107); Estimated CRCL calculation 60 ml/min; Estimated Glomerular Filt Rate > 60; Glucose 208 mg/dL (65-110); Potassium 3.2 mmol/L (3.4-5.0); Sodium 134 mmol/L (137-145)
[2024-11-21 07:38] LABS: Glucose Point of Care 177 mg/dl (65-105)
[2024-11-21] MEDS: INSULIN ASPART (*BKC) 100 UNITS/ML SUB-Q ×2 (09:06→12:35)
[2024-11-21] MEDS: POTASSIUM CHLORIDE 20 MEQ PACKET (FOR LIQUID) 40 MEQ PO (11:22)
[2024-11-21 11:55] LABS: Glucose Point of Care 200 mg/dl (65-105)
--- NOTE | 2024-11-21 12:03 | PM.DS ---
DS: Admitting Diagnosis Discharge Date 11/21/24 Admitting Diagnosis UTI/Pyelonephritis DS: Discharge Diagnosis Discharge Diagnosis (1) Sepsis: Qualifiers: Sepsis acute organ dysfunction status: without acute organ dysfunction Sepsis type: sepsis due to unspecified organism Qualified Code(s): A41.9 - Sepsis, unspecified organism Code(s): A41.9 - Sepsis, unspecified organism Status: Acute (2) Pyelonephritis: Code(s): N12 - Tubulo-interstitial nephritis, not specified as acute or chronic Status: Acute (3) Type 1 diabetes: Qualifiers: Diabetes mellitus complication status: with hyperglycemia Qualified Code(s): E10.65 - Type 1 diabetes mellitus with hyperglycemia Code(s): E10.9 - Type 1 diabetes mellitus without complications Status: Acute Plan sepsis UTI/Pyelonephritis Tachycardia fever and WBC culture positive for ECOli sensitive to Augmentin. will give 23 more tablets. total 10 days treatment DC Zosyn Continue to monitor Pyelonephritis plan as above DM1 SSi and AccuCheck Lantus and lispro anemia likely chronic follow with PCP as outpatient Diet: Diabetes GI Prophylaxis: Not currently indicated DVT Prophylaxis: SCDs IV fluids: 2L bolus -> 125 mL/hr Lines/Tubes: Peripheral IV Code Status: Full code DS: Summary Hospital Course Hospital Course: per HPI: 19 y/o F with PMH of DM1 presents here with chills, body aches, abdominal pain. The patient presents here from home on 11/19 for further evaluation of chills, body aches, abdominal pain, and persistent UTI. She reports she was diagnosed with a UTI approximately 3 weeks ago. She was prescribed Bactrim 800/160 b.i.d. times 10 days on 10/28/2024. She reports despite completing course she felt XX. Patient developed chills, body aches, and left lower quadrant abdominal pain early this morning which prompted her to seek evaluation in the ER. She describes the abdominal pain as XX, radiating/nonradiating, and constant/intermittent. Abdominal pain has since resolved? The patient also endorses XX. Denies XX. Initial VS at presentation: 98.5? F, HR 137, R 20, 148/87, and 98% on RA. ED workup showed: WBC 16.2, hemoglobin 8.2, INR 1.2, sodium 134, gap closed, creatinine 0.94 and GFR >60, glucose 281, and UA consistent with UTI. Pelvic ultrasound showed polycystic ovaries with minimal free fluid, no definite torsion noted. CXR showed no focal infiltrate or effusion. CT of the abdomen/pelvis showed finding suggestive of pyelonephritis with significant inflammatory changes surrounding the bladder. 11/20/24 Blood culture positive. continue Zosyn. will Dc Vancomycin 11/21/24 Patient was seen and examined at bedside. she is feeling better. her abd pain improved. denies any chest pain SOb, N/V. Culture positive for Ecoli sensitive to Augmentin Status at Discharge Overall status at discharge: patient is back to baseline Time Spent with Patient Time attestation: Total time spent providing and/or coordinating discharge services: Time spent: Greater than 30 minutes Exam Narrative: correction dose: BS number -150 /50 is correction dose. +carb counting Const: General: comfortable and no acute distress Other: , female, young adult, nontoxic appearance HENMT: Face/Nose/Sinus: Normal nares present Mouth: Yes moist mucous membranes Eyes: General: appearance normal, both eyes and all related structures Sclera: sclerae normal Pupils: Equal, round and reactive pupils present EOM: EOMs intact bilaterally Resp: Effort & Inspection: normal respiratory effort Auscultation: clear to auscultation bilaterally Cardio: Rate: regular rate Rhythm: regular rhythm Other: S1-S2 present without murmur, rub, ectopy GI: Other: Abdomen soft, nondistended, nontender. Normoactive bowel sounds in all quadrants. : Other: No CVA tenderness Skin: General skin exam: normal color and no rashes or lesions noted Wounds: no wounds Neuro: General: gait normal Cranial nerves: Yes Equal, round and reactive pupils present Speech: normal speech Motor exam (neuro): 5/5 motor strength present throughout Sensory Exam: normal sensation Other: A&O x4 Extrem: General: normal to inspection Psych: Mental Status: mental status grossly normal Affect: normal affect Other: Good insight and judgment, very pleasant DS: Data Data Completed and Pending Labs on day of discharge: Labs from last 24 hours 11/21/24 11/21/24 11/21/24 11:52 07:25 06:44 WBC 11.4 H RBC 2.50 L Hgb 7.3 L Hct 23.2 L MCV 92.8 MCH 29.2 MCHC 31.5 L RDW 13.4 Plt Count 311 MPV 10.4 Sodium 134 L Potassium 3.2 L Chloride 104 Carbon Dioxide 21 L Anion Gap 9 BUN 7 Creatinine 1.05 H Estim Creat Clear Calc 60 Estimated GFR > 60 Glucose 208 H POC Capillary Glucose 200 H 177 H Calcium 8.5 11/20/24 11/20/24 19:31 16:50 WBC RBC Hgb Hct MCV MCH MCHC RDW Plt Count MPV Sodium Potassium Chloride Carbon Dioxide Anion Gap BUN Creatinine Estim Creat Clear Calc Estimated GFR Glucose POC Capillary Glucose 145 H 83 Calcium Preliminary micro results at discharge 11/19/24 18:36 Blood Culture - Preliminary Blood Escherichia Coli 11/19/24 17:21 Blood Culture - Preliminary Blood Discharge Plan Discharge Attending physician on discharge: Rubens Alvarenga Discharging Clinician: Rubens Alvarenga Anticipated Discharge Date/Time: 11/21/24 12:06 Patient Disposition: Home Activity: as tolerated Diet: diabetic Patient Instructions: Antibiotic Form Patient Language: Luxembourgish Stand Alone Forms: General Discharge Information Follow-up/Referrals: UNKNOWN,DOCTOR [Primary Care Provider] - 1 Week Discharge Medications: New amoxicillin-pot clavulanate 875-125 mg tablet 1 tablet PO Q8H Qty: 23 0RF Continued insulin glargine [Lantus U-100 Insulin] 100 unit/mL solution 33 unit subcut QPM insulin lispro [Humalog KwikPen Insulin] 100 unit/mL insulin pen 1 sliding scale dose subcut USEASDIRECTD Patient Comments: Carb Countin unit for every 10 grams of carbs. before meals. If normal range 80-199 mg/dl NO additional dose needed. BG > 199 mg/dl : calculate as noted : (BG result minus 150) divide by 50 to equal correction dose. Give correction dose and carb counting dose at same time. Date of admission: 11/20/24 10:05 Primary Care Provider: UNKNOWN,DOCTOR Admitting Provider: Rubens Alvarenga Attending physician on admission: Rubens Alvarenga Condition: Serious Quality VTE Prophylaxis VTE prophylaxis: mechanical ordered
[2024-11-21 12:16] VITALS: O2SAT 99
[2024-11-21] MEDS: AMOXICILLIN/CLAVULANATE K 875-125 MG TAB 1 TABLET PO (12:46)
== END 2024-11-21 13:02 | disposition home or self-care (01) | DRG 720 ==
LOC: ANHED 18:52 → ANH3MEDSUR 19:51
PROVIDERS: Student in an Organized Health Care Education/Training Program; Admitting Provider Internal Medicine; Emergency Provider Physician Assistant; Visit Provider Internal Medicine
DX: A41.51 Sepsis due to Escherichia coli [E. coli] (principal); N12 Tubulo-interstitial nephritis, not specified as acute or chronic; D64.9 Anemia, unspecified; E10.65 Type 1 diabetes mellitus with hyperglycemia; Z79.4 Long term (current) use of insulin
CPT/HCPCS: 36415; 71045; 74177; 76856; 80048; 80053; 81001; 81025; 82948; 83605; 83690; 83735; 84145; 85025; 85027; 85380; 85384; 85610; 85730; 87040; 87086; 87186; 93005; 96361; 96365; 96366; 96367; 96372; 96375; 99285; A9270; G0378; G0379; J1815; J1885; J2405; J2543; J3370; J7030; Q9967